=== PATIENT | female | born 1950 | race Caucasian/White ===

== ENCOUNTER 2016-08-12 06:49 | Day surgery (SDC) | payer OTHER, MEDICAID ==
[2016-08-12] MEDS ORDERED: NS 500 ML IV 500 ML IV ONE ×2 (07:15→07:45)
[2016-08-12] MEDS ORDERED: TETRACAINE 0.5% OPHTH 1 DOSE AFFEYE ONE ×2 (07:18→09:01)
[2016-08-12] MEDS ORDERED: VIGAMOX 0.5% OPHTH 1 DOSE AFFEYE ONE ×3 (07:20→07:30)
[2016-08-12] MEDS ORDERED: PROLENSA OPHTH 1 DOSE AFFEYE ONE (07:32)
[2016-08-12] MEDS ORDERED: ALPHAGAN-P OPHTH 1 DOSE AFFEYE ONE (07:34)
[2016-08-12] MEDS ORDERED: MYDRIACIL OPHTH 1 DOSE AFFEYE ONE ×2 (07:35→07:37)
[2016-08-12] MEDS ORDERED: AK-DILATE 2.5% OPHTH 1 DOSE OP ONE ×2 (07:35→07:37)
[2016-08-12] MEDS ORDERED: CYCLOGYL 1% OPHTH 1 DOSE OP ONE ×2 (07:35→07:37)
[2016-08-12] MEDS ORDERED: BETADINE OPHTH SOLN 5% EACHEYE ONE (09:10)
[2016-08-12] MEDS ORDERED: BSS OPHTH (PLAIN) 500 ML with VANCOMYCIN HCL 500 MG VIAL 25 MG, ADRENALINE CHL INJ 1 MG IR ONE ×3 (09:22)
[2016-08-12] MEDS ORDERED: DUOVISC IO ONE (09:22)
[2016-08-12] MEDS ORDERED: ADRENALINE CHL INJ IJ ONE (09:22)
[2016-08-12] MEDS ORDERED: XYLOCAINE-MPF 1% IJ ONE (09:22)
[2016-08-12] MEDS ORDERED: TobraDEX OPHTH SUSP 1 DOSE AFFEYE ONE ×2 (09:26→09:32)
[2016-08-12 10:24] VITALS: BP 135/76
[2016-08-12] MEDS ORDERED: DIPRIVAN VIAL ONE (10:33)
== END 2016-08-12 10:00 | disposition home or self-care (01) ==
LOC: SURG1 06:49
PROVIDERS: ATTEND Ophthalmology
PROC: 08DJ3ZZ Extraction of Right Lens, Percutaneous Approach (ICD-10-PCS; principal; 2016-08-12 07:30)
PROC: 08RJ3JZ Replacement of Right Lens with Synthetic Substitute, Percutaneous Approach (ICD-10-PCS; principal; 2016-08-12 07:30)
DX: H25.11 Age-related nuclear cataract, right eye (principal); H25.011 Cortical age-related cataract, right eye
CPT/HCPCS: A4222; A4217; J0170; J3370; J3490

== ENCOUNTER → 2016-08-14 | Outpatient (CLI) | payer OTHER, MEDICAID ==
[2016-08-12 10:24] VITALS: BP 135/76
[2016-08-14 14:56] LABS: CRYPTOSPORIDIUM PARVUM ANTIGEN NEGATIVE (NEGATIVE); GIARDIA LAMBLIA ANTIGEN NEGATIVE (NEGATIVE)
== END ==
LOC: LAB 13:49
PROVIDERS: ATTEND Internal Medicine Gastroenterology
DX: K59.1 Functional diarrhea (principal)
CPT/HCPCS: 82705; 87045; 87205; 87328; 87329; 87336; 87427; 87493; 87899

== ENCOUNTER → 2016-08-21 | Outpatient (CLI) | payer OTHER, MEDICAID ==
[2016-08-12 10:24] VITALS: BP 135/76
[2016-08-21 13:27] LABS: BASOPHILS # (AUTO) 0.1 X10^3/uL (0.0-0.1); BASOPHILS % (AUTO) 1.1 % (0.2-1.0); EOSINOPHILS # (AUTO) 0.5 x10^3/uL (0.0-0.2); EOSINOPHILS % (AUTO) 8.4 % (0.9-2.9); HEMATOCRIT 40.7 % (36.0-47.0); HEMOGLOBIN 13.7 g/dL (12.0-16.0); LYMPHOCYTES # (AUTO) 2.2 X10^3/uL (1.3-2.9); LYMPHOCYTES % (AUTO) 34.8 % (21.0-51.0); MEAN CORPUSCULAR HEMOGLOBIN 30.1 pg (27.0-34.0); MEAN CORPUSCULAR HGB CONC 33.6 g/dL (33.0-35.0); MEAN CORPUSCULAR VOLUME 89.4 fL (80.0-100.0); MEAN PLATELET VOLUME 9.3 fL (7.4-11.0); MONOCYTES # (AUTO) 0.5 x10^3/uL (0.3-0.8); MONOCYTES % (AUTO) 8.6 % (0.0-13.0); NEUTROPHILS % (AUTO) 47.1 % (42.0-75.0); PLATELET COUNT 224 X10^3/uL (150.0-450.0); RED BLOOD COUNT 4.55 X10^6/uL (3.5-5.4); RED CELL DISTRIBUTION WIDTH 13.4 % (11.6-16.5); WHITE BLOOD COUNT 6.3 X10^3/uL (3.6-10.0)
[2016-08-21 13:58] LABS: ALANINE AMINOTRANSFERASE 23 Units/L (12-78); ALBUMIN 3.8 g/dL (3.4-5.0); ALKALINE PHOSPHATASE 43 Units/L (46-116); ASPARTATE AMINO TRANSFERASE 29 Units/L (15-37); BLOOD UREA NITROGEN 14 mg/dL (7-18); CALCIUM 8.8 mg/dL (8.5-10.1); CARBON DIOXIDE 27.7 mmol/L (21-32); CHLORIDE 105 mmol/L (98-107); CHOL/HDL RATIO 3.8 (0.0-5.0); CHOLESTEROL 227 mg/dL (0-200); CREATININE 1.25 mg/dL (0.55-1.02); GLUCOSE 89 mg/dL (65-99); HDL CHOLESTEROL 59 mg/dL (40-60); SODIUM 142 mmol/L (136-145); TOTAL PROTEIN 7.8 g/dL (6.4-8.2); TRIGLYCERIDES 182 mg/dL (0-150); TSH (3RD GENERATION) 7.106 uIU/mL (0.358-3.74); eGFR BLACK RACES 55 (>60); eGFR NON BLACK RACES 46 (>60)
== END ==
LOC: LAB 12:50
PROVIDERS: ATTEND Obstetrics & Gynecology Obstetrics
DX: E03.8 Other specified hypothyroidism (principal)
CPT/HCPCS: 36415; 80053; 80061; 84443; 85025; 86376; 86800

== ENCOUNTER 2016-09-02 10:47 | Day surgery (SDC) | payer OTHER, MEDICAID ==
[~2016-09-02 10:47] MED LIST: DIPRIVAN VIAL ONE
[2016-09-02] MEDS ORDERED: TETRACAINE 0.5% OPHTH 1 DOSE AFFEYE ONE ×4 (11:27→15:04)
[2016-09-02] MEDS ORDERED: VIGAMOX 0.5% OPHTH 1 DOSE AFFEYE ONE ×5 (11:30→15:14)
[2016-09-02] MEDS ORDERED: NS 500 ML IV 500 ML IV ONE (11:31)
[2016-09-02] MEDS ORDERED: PROLENSA OPHTH 1 DOSE AFFEYE ONE (11:42)
[2016-09-02] MEDS ORDERED: ALPHAGAN-P OPHTH 1 DOSE AFFEYE ONE (11:43)
[2016-09-02] MEDS ORDERED: CYCLOGYL 1% OPHTH 1 DOSE OP ONE ×2 (11:45→11:47)
[2016-09-02] MEDS ORDERED: MYDRIACIL OPHTH 1 DOSE AFFEYE ONE ×2 (11:45→11:47)
[2016-09-02] MEDS ORDERED: AK-DILATE 2.5% OPHTH 1 DOSE OP ONE ×2 (11:45→11:47)
[2016-09-02] MEDS ORDERED: AK-DILATE 10% OPHTH 1 DOSE AFFEYE ONE ×2 (14:23→14:25)
[2016-09-02] MEDS ORDERED: BETADINE OPHTH SOLN 5% EACHEYE ONE (14:55)
[2016-09-02] MEDS ORDERED: ADRENALINE CHL INJ IJ ONE ×2 (14:57→15:04)
[2016-09-02] MEDS ORDERED: BSS OPHTH (PLAIN) 500 ML with VANCOMYCIN HCL 500 MG VIAL 25 MG, ADRENALINE CHL INJ 1 MG IR ONE ×6 (14:57)
[2016-09-02] MEDS ORDERED: DUOVISC IO ONE ×2 (14:57→15:04)
[2016-09-02] MEDS ORDERED: XYLOCAINE-MPF 1% IJ ONE ×2 (14:57→15:04)
[2016-09-02 17:22] VITALS: BP 126/61
== END 2016-09-02 15:40 | disposition home or self-care (01) ==
LOC: SURG1 10:47
PROVIDERS: ATTEND Ophthalmology
PROC: 08RK3JZ Replacement of Left Lens with Synthetic Substitute, Percutaneous Approach (ICD-10-PCS; principal; 2016-09-02 20:00)
PROC: 08DK3ZZ Extraction of Left Lens, Percutaneous Approach (ICD-10-PCS; principal; 2016-09-02 20:00)
DX: H25.12 Age-related nuclear cataract, left eye (principal); H25.012 Cortical age-related cataract, left eye
CPT/HCPCS: A4217; J0170; J3370; J3490

== ENCOUNTER → 2016-10-30 | Outpatient (CLI) | payer OTHER, MEDICAID | END | disposition home or self-care (01) | DRG 645 | LOC: LAB 13:37 | PROVIDERS: ATTEND Obstetrics & Gynecology Obstetrics | DX: E06.3 Autoimmune thyroiditis (principal); E03.8 Other specified hypothyroidism | CPT/HCPCS: 36415; 84443 ==